=== PATIENT | female | born 1995 | race Caucasian/White ===

== ENCOUNTER 2016-10-17 20:37 | Emergency (ER) | payer MEDICAID ==
[2016-10-17 22:00] VITALS: BP 127/80
== END 2016-10-17 22:00 | disposition home or self-care (01) ==
LOC: ED 20:37
DX: S20.211A Contusion of right front wall of thorax, initial encounter (principal); Y04.0XXA Assault by unarmed brawl or fight, initial encounter; Y93.89 Activity, other specified; Y92.89 Other specified places as the place of occurrence of the external cause; Y99.8 Other external cause status

== ENCOUNTER 2016-12-26 19:47 | Emergency (ER) | payer MEDICAID ==
[2016-12-26 20:45] VITALS: BP 134/87
== END 2016-12-26 22:00 | disposition left against medical advice (07) ==
LOC: ED 19:47
DX: Z53.21 Procedure and treatment not carried out due to patient leaving prior to being seen by health care provider (principal)

== ENCOUNTER 2016-12-27 00:35 | Emergency (ER) | payer MEDICAID ==
[2016-12-27 03:23] VITALS: BP 123/66
== END 2016-12-27 03:23 | disposition home or self-care (01) ==
LOC: ED 00:35
DX: M25.572 Pain in left ankle and joints of left foot (principal); L03.116 Cellulitis of left lower limb
CPT/HCPCS: J1885; Q0092

== ENCOUNTER 2019-04-30 22:26 | Emergency (ER) | payer MEDICAID ==
[~2019-04-30] VITALS: Ht 172.7 cm; Wt 108.9 kg
[2019-04-30 22:31] VITALS: Ht 172.7 cm; Wt 108.9 kg
[2019-04-30 23:34] LABS: BASOPHIL % 0.3 % (0-2); PLATELET COUNT 262 x10^3mcL (130-400)
[2019-04-30 23:39] LABS: RED CELL DISTRIBUTION WIDTH 14.6 % (11.5-14.5)
[2019-05-01 00:06] LABS: ALKALINE PHOSPHATASE 80 U/L (46-116); ALT/SGPT 18 U/L (14-59); AST/SGOT 10 U/L (15-37); BILIRUBIN TOTAL 0.2 mg/dL (0.20-1.00); CARBON DIOXIDE 26.9 mmol/L (21-32); CHLORIDE SERUM 106 mmol/L (98-107); CREATININE SERUM 0.5 mg/dL (0.6-1.0); GFR1 > 60 mL/min; GLUCOSE SERUM 109 mg/dL (74-106); POTASSIUM SERUM 4.4 mmol/L (3.5-5.1); SODIUM SERUM 139 mmol/L (136-145); TOTAL PROTEIN, SERUM 6.6 g/dL (6.4-8.2)
[2019-05-01 00:37] LABS: ALBUMIN 2.9 g/dL (3.4-5.0)
[2019-05-01 00:38] LABS: CALCIUM 8.6 mg/dL (8.5-10.1)
[2019-05-01 02:40] VITALS: BP 120/65
== END 2019-05-01 02:40 | disposition short-term general hospital (02) ==
LOC: ED 22:26
PROVIDERS: Emergency Medicine
DX: O9A.213 Injury, poisoning and certain other consequences of external causes complicating pregnancy, third trimester (principal); O99.013 Anemia complicating pregnancy, third trimester; S39.91XA Unspecified injury of abdomen, initial encounter; Z3A.28 28 weeks gestation of pregnancy; Y04.0XXA Assault by unarmed brawl or fight, initial encounter; Y93.39 Activity, other involving climbing, rappelling and jumping off; Y92.89 Other specified places as the place of occurrence of the external cause; Y99.8 Other external cause status
CPT/HCPCS: 36415; 85378